=== PATIENT | male | born 1975 | race Caucasian/White ===

== ENCOUNTER 2016-12-12 06:55 | Inpatient (IN) | payer BC ==
--- NOTE | 2016-11-21 15:50 | HP ---
CC: Amish Cardona MD, at [facility]; Jesus Alan MD PREOPERATIVE HISTORY AND PHYSICAL: DATE OF ADMISSION: 12/12/16 This patient is scheduled for AA admission by Dr. Cardona on 12/12/16. ATTENDING SURGEON: Amish Cardona MD (dictated by Nancy Mcmanus NP). CHIEF COMPLAINT: Morbid obesity. HISTORY OF PRESENT ILLNESS: The patient is a 41-year-old morbidly obese male with insulin-dependent diabetes with poor glycemic control, hypertension, and dyslipidemia. He is followed for primary ca re by Dr. Alan and was referred to Dr. Cardona for consideration of bariatric surgery as a long-t erm treatment for his diabetes. He stands at 73 inches and weighs 322 pounds for a body mass index of 42.5. He has lost 18 pounds during the 6-month period of medically supervised weight loss. He has completed all of the necessary preoperative diagnostic evaluations and testing and has been deem ed an appropriate candidate by Dr. Cardona to proceed with laparoscopic Janneth-en-Y gastric bypass. Donna Cardona has described the nature of the surgical procedure, the expected results of surgery, the relevant risks, benefits, and alternatives and today, I reviewed the typical postoperative care and recovery. The patient understands the need for compliance with the postop stages of the diet, exerc ise, vitamin and mineral supplementation, as well as followup visits with Dr. Cardona. The patient has had a chance to ask questions and stated that he understands the information and is satisfied wi th the answers given to his questions. He will sign surgical consent on the day of surgery. PAST MEDICAL HISTORY: Significant for clinically severe obesity, insulin-dependent diabetes with po or glycemic control with hemoglobin A1c's greater than 8 for the past 2 years and as high as 10 in 2 014, dyslipidemia, hypertension, and back pain. PAST SURGICAL HISTORY: Back surgery in 1997 for ruptured disk at [facility]. MEDICATIONS: 1. Pioglitazone 45 mg p.o. daily in the morning. 2. Ramipril 5 mg p.o. daily. 3. Atorvastatin 40 mg p.o. daily. 4. Lantus insulin 80 units subcutaneously every morning. 5. Aspirin 81 mg p.o. daily and the patient was advised to hold the aspirin 1 week preoperatively. He also knows that he may need to discuss with Dr. Alan adjusting his insulin and pioglitazone w martinezdonn he is on the preoperative diet if he experiences any symptoms of hypoglycemia. ALLERGIES: No known drug allergies. FAMILY HISTORY: Mother alive at age 66, described as slightly overweight with a history of stomach cancer and smoking. Father alive at age 71, described as overweight with a history of open heart carlisle rgery, type 2 diabetes, and deep vein thrombosis of the lower extremity. The patient has one sister age 41, generally healthy, described as normal weight. The patient's paternal grandfather had diab etes. No known anesthesia complications or bleeding tendencies in the family. SOCIAL HISTORY: He is . He is employed as a galindo. He quit smoking at age 25. He drin ks 2 to 3 alcoholic beverages per week on average and denies the use of other substances. REVIEW OF SYSTEMS: He denies any recent constitutional symptoms. He denies any cardiac conditions or complaints. He is treated for hypertension. He denies any history of deep vein thrombosis or pu lmonary embolism. He denies any respiratory conditions or complaints. He underwent upper endoscopy preoperatively which revealed minimal gastritis consistent with aspirin usage, CLOtest was negative . Upper GI series revealed a small sliding hiatal hernia. Gallbladder ultrasound was negative for g allstones, but did reveal a fatty liver. He denies any acid reflux. He denies any kidney conditions or complaints. He denies any dysuria. He denies any previous anesthesia complications. He denies any bleeding tendencies and has never received a blood transfusion. He has been diabetic for appro ximately 6 years and has poor glycemic control. At this time, fasting fingerstick in the morning ru ns between 120 and 140. He denies any neurologic conditions or complaints. He reports physical briones itations related to his obesity as being unable to fit into certain places and having difficulty juju ding over. PHYSICAL EXAMINATION GENERAL SURVEY: The patient is a 41-year-old morbidly obese male in no acute distress. VITAL SIGNS: Height 73 inches, weight 322 pounds, body mass index 42.5. Blood pressure 144/86, pul se 62 and regular, respiratory rate 18, temperature 98 tympanic. HEENT: Benign. NECK: Supple. No cervical lymphadenopathy. No JVD. No carotid bruits. BACK: No CVA tenderness. Well-healed surgical scar. LUNGS: Breath sounds bilaterally clear and equal. HEART: Regular rate and rhythm. No murmurs or rubs appreciated. ABDOMEN: Obese, soft, nontender throughout. No obvious masses, organomegaly, or evidence of umbili jocelyn hernia. EXTREMITIES: Warm without edema or skin ulceration. GENITALIA AND RECTAL: Exams deferred. NEUROLOGIC: Alert and oriented x3. Steady gait. SKIN: Warm, dry, and intact. IMPRESSION: Morbid obesity. PLAN: AA admission to Dr. Cardona' service on 12/12/16, for laparoscopic Janneth-en-Y gastric bypass. DEANNA MCMANUS, DEBURRING AND TOOLING MACHINE OPERATOR [id number]/CPS #: [id number]
[~2016-12-12 06:55] MED LIST: Buffered Lidocaine 1% SYRIN* 3 ML/SYR SYRINGE INTRADERM ONE; Clindamycin 900 MG IVPREMIX(* 900 MG/50 ML SDV IV ONE; Heparin VIAL(*) 5000 UNITS/ML VIAL (FIVE THOUSAND) ONE; ceFAZolin 1 GM in Dextrose (*) 1 GM/50 ML BAG IVPB ONE; ceFOXitin 2 GM IVPREMIX* 2 GM/50 ML BAG ONE
[2016-12-12] MEDS ORDERED: Bupivacaine 0.5% W/EPI SDV* 30 ML VIAL ONE (08:20)
[2016-12-12] MEDS ORDERED: Methylene Blue 1%* 10 ML VIAL ONE (08:20)
[2016-12-12] MEDS ORDERED: Midazolam* 1 MG/ML 2 ML VIAL (2 MG) ONE (08:29)
[2016-12-12] MEDS ORDERED: fentaNYL* 50 MCG/ML 5 ML VIAL (250 MCG VIAL) ONE (08:29)
[2016-12-12] MEDS ORDERED: Succinylcholine* 20 MG/ML 10 ML VIAL ONE ×2 (08:30→09:16)
[2016-12-12] MEDS ORDERED: Lidocaine 2% PF* 5 ML VIAL ONE (08:30)
[2016-12-12] MEDS ORDERED: Propofol* 10 MG/ML 20 ML BTL IV PUSH ONE (08:30)
[2016-12-12] MEDS ORDERED: Ondansetron INJ* 2 MG/ML VIAL ONE ×2 (08:30→11:14)
[2016-12-12] MEDS ORDERED: Cisatracurium* 2 MG/ML MDV 5 ML ONE (08:31)
[2016-12-12] MEDS ORDERED: fentaNYL* 50 MCG/ML 2 ML VIAL (100 MCG VIAL) IV PRN (10:23)
[2016-12-12] MEDS ORDERED: Metoclopramide IV* 5 MG/ML 2 ML VIAL IV PRN (10:23)
[2016-12-12] MEDS ORDERED: fentaNYL* 50 MCG/ML 2 ML VIAL (100 MCG VIAL) ONE (10:43)
[2016-12-12] MEDS ORDERED: Acetaminophen ADULT LIQ* 650 MG/20.3 ML UDC PO PRN (10:54)
[2016-12-12] MEDS ORDERED: Ondansetron INJ* 2 MG/ML VIAL IV PRN (10:54)
[2016-12-12] MEDS ORDERED: HYDROmorphone* 1 MG/ML 1 ML SYR IV PRN (10:54)
[2016-12-12] MEDS ORDERED: diPHENhydraMINE IV* 50 MG/ML 1 ml VIAL (BENADRYL) SLOW PUSH PRN (10:54)
--- NOTE | 2016-12-12 10:54 | SURGPN ---
Brief Operative Note - Surgery Procedures: PREOP/POSTOP DX: MORBID OBESITY PROC: LRYGB SURG: MECENAS ASSIST: SAROJ SINGLETARY: ROBERT GRAHAM EBL: MIN IVF: LR SPEC: NONE DRAIN: NONE COMPL: NONE COND: STABLE TO RR
[2016-12-12] MEDS ORDERED: Metoclopramide IV* 5 MG/ML 2 ML VIAL ONE (11:14)
[2016-12-12] MEDS ORDERED: HYDROmorphone* 1 MG/ML 1 ML SYR ONE ×2 (11:24→13:18)
[2016-12-12] MEDS: HYDROmorphone* 1 MG/ML 1 ML SYR IV PRN ×7 (11:25→21:22)
[2016-12-12] MEDS ORDERED: Scopolamine 1.5 mg* PATCH ONE (11:29)
[2016-12-12] MEDS ORDERED: Ketorolac INJ* 30 MG/ML 1 ML VIAL ONE (11:50)
[2016-12-12] MEDS: Ketorolac INJ* 30 MG/ML 1 ML VIAL IV PRN ×2 (11:52→18:01)
[2016-12-12] MEDS ORDERED: HYDROmorphone* 1 MG/ML 1 ML SYR IV ONE (13:19)
[2016-12-12] MEDS: Famotidine IV* 10 MG/ML 2 ML (20 mg) IV SCH ×2 (13:23→23:15)
[2016-12-12] MEDS: Insulin REGULAR(*) 1 UNITS UNIT SUBCUT SCH ×3 (13:32→23:38)
[2016-12-12] MEDS: Heparin VIAL(*) 5000 UNITS/ML VIAL (FIVE THOUSAND) SUBCUT SCH ×2 (14:27→23:15)
[2016-12-13] MEDS: HYDROmorphone* 1 MG/ML 1 ML SYR IV PRN ×2 (02:24→13:21)
[2016-12-13] MEDS: Ketorolac INJ* 30 MG/ML 1 ML VIAL IV PRN ×4 (02:24→22:45)
--- NOTE | 2016-12-13 04:44 | OP ---
DATE OF OPERATION: 12/12/16 - ROOM #353 DATE OF : 75 SURGEON: Amish Cardona MD MANAGER OF REVENUE: Dangelo Dougherty MD ANESTHESIOLOGIST: Kristi Pitt MD ANESTHESIA: General endotracheal. PRE-OP DIAGNOSIS: Morbid obesity. POST-OP DIAGNOSIS: Morbid obesity. OPERATIVE PROCEDURE: Laparoscopic Janneth-en-Y gastric bypass. ESTIMATED BLOOD LOSS: Minimal. IV FLUIDS: Crystalloid. SPECIMEN: None. DRAINS: None. COMPLICATIONS: None. COUNTS: The instrument, needle, and sponge counts were correct. DESCRIPTION OF PROCEDURE: The patient was brought to the operating room and placed on the table supine. Sequential compression devices were placed on both lower extremities. General anesthesia was administered. Cardenas catheter was placed. He was positioned and padded appropriately. Warming blanket was applied. His abdomen was prepped and draped in the usual sterile fashion. He received appropriate antibiotics and time-out was performed. Local anesthetic was infiltrated into the skin and soft tissue prior to making each incision. Entry into the abdomen was through a left upper quadrant incision accommodating a 12-mm optical trocar. After accessing the peritoneal cavity, carbon dioxide was insufflated to a pressure of 15 mmHg. Under direct visualization, 12-mm bladeless trocars were placed supraumbilically and in the right upper quadrant. 5 mm bladeless trocars were placed in the right upper quadrant medially and left upper quadrant laterally. A Jose liver retractor was placed percutaneously in the subxiphoid position and used to elevate the left lobe of the liver. The liver was normal in appearance. The stomach was decompressed with an oral gastric tube, which was then removed. The epigastric fat pad was mobilized away from the diaphragm and left faby of the diaphragm was exposed. Next, perigastric dissection was undertaken on the lesser curvature and lesser sac was entered. A series of firings with the EndoGIA stapler with shen cartridges were used to create the gastric pouch, which approximated 20 to 30 mL volume. The olivia lines were noted to be intact and hemostatic. Next, the omentum was retracted superiorly and divided along its midline with LigaSure. The ligament of Treitz was identified and jejunum was measured out approximately 40 to 50 cm. The jejunum was tacked to the left lateral staple line on the gastric pouch and then a gastrojejunostomy was created with the EndoGIA stapler with a 30-mm shen cartridge. The common enterotomy was then closed with 3-0 Maxon over a 36-Dominican gastric lavage tube. The "omega loop" of the small bowel was divided with EndoGIA stapler with shen cartridge and then the gastrojejunal anastomosis was tested with methylene blue dye solution instilled through the gastric lavage tube and no leak was identified. Subsequently, the Janneth limb was measured out 75 cm and a functional end-to-side jejunojejunostomy was created with a 60-mm Endo PRESLEY stapler and common enterotomy was again closed with 3-0 Maxon running. The mesenteric defect was closed with 3-0 silk in interrupted and running fashion. The inspection revealed hemostasis to be excellent. Jose liver retractor and ports removed and carbon dioxide was released. Skin incisions were closed with olivia and dressings applied. The patient tolerated the procedure well. He was extubated and transferred to the recovery room in stable condition. CC: Jesus Alan MD* [id number]/STEPHANIE #: [id number] SEKOU
[2016-12-13] MEDS: Insulin REGULAR(*) 1 UNITS UNIT SUBCUT SCH ×3 (06:08→18:13)
[2016-12-13] MEDS: Heparin VIAL(*) 5000 UNITS/ML VIAL (FIVE THOUSAND) SUBCUT SCH ×3 (06:08→22:41)
--- NOTE | 2016-12-13 08:08 | PN ---
Progress Note - Progress Note SOAP: Subjective: Feels good. Pain controlled. No N/V. Ambulating. Objective: Vital Signs Temp 98.0 F 12/13/16 07:32 Pulse 65 12/13/16 07:32 Resp 16 12/13/16 07:32 BP 136/76 12/13/16 07:32 Pulse Ox 99 12/13/16 07:32 Intake & Output 12/12/16 12/13/16 12/13/16 18:59 06:59 18:59 Intake Total 3150 1801 Output Total 1100 1250 Balance 2050 551 Weight 306 lb 9.6 oz Intake: IV Fluids 3150 1801 3GM CEFAZOLIN 100 CLINDAMYCIN 900MG 50 LR 3000 1801 Oral 0 0 Output: Payton 1100 1250 NAD abd: dressings c/d/i; ND; soft; min tender Laboratory Results - last 24 hr 12/12/16 12/12/16 12/12/16 11:04 13:23 17:48 POC Glucose (mg/dL) 167 H 216 H 140 H 12/12/16 12/13/16 23:13 06:07 POC Glucose (mg/dL) 88 93 Assessment: POD#1 s/p LRYGB. Doing well. Plan: D/C payton. Adv diet. Amb. PO meds. Home am.
[2016-12-13] MEDS: Famotidine IV* 10 MG/ML 2 ML (20 mg) IV SCH ×2 (11:50→22:41)
[2016-12-13] MEDS: D5W 1/2 NS KCl 20 Meq 1000 ML* 1,000 ML IV SCH (15:43)
[2016-12-13] MEDS: HYDROcodone/ACET. 7.5/325 LIQ* 15 ML UDC PO PRN (18:02)
[2016-12-14] MEDS: D5W 1/2 NS KCl 20 Meq 1000 ML* 1,000 ML IV SCH ×2 (00:26→08:18)
[2016-12-14] MEDS: Insulin REGULAR(*) 1 UNITS UNIT SUBCUT SCH ×3 (00:31→12:15)
[2016-12-14] MEDS: Heparin VIAL(*) 5000 UNITS/ML VIAL (FIVE THOUSAND) SUBCUT SCH (06:14)
[2016-12-14] MEDS: HYDROcodone/ACET. 7.5/325 LIQ* 15 ML UDC PO PRN ×2 (06:16→12:19)
--- NOTE | 2016-12-14 10:59 | SURGPN ---
Subjective - Introduction -: Reports doing very well, mild incisional discomfort. No N/V, fever or chills. Tolerating stage I bariatric diet. Ambulatory and ready to go home. - Medications -: Active Medications Generic Name Dose Route Start Last Admin Trade Name Freq PRN Reason Stop Dose Admin Acetaminophen 650 mg 12/12/16 10:54 Tylenol Adult Liq* PO Q6H PRN Temp > 101 F Or Mild Pain Hydrocodone Bitart/Acetaminophen 15 ml 12/12/16 10:54 12/14/16 06:16 Nortab 7.5/325 Liq* PO 15 ml Q6H PRN Administration PAIN Diphenhydramine HCl 25 mg 12/12/16 10:54 Benadryl Iv* SLOW PUSH Q6H PRN ITCHING Famotidine 20 mg 12/12/16 11:00 12/13/16 22:41 Pepcid Iv* IV 20 mg Q12H RODNEY Administration Heparin Sodium (Porcine) 5,000 units 12/12/16 14:00 12/14/16 06:14 Heparin Vial(*) SUBCUT 5,000 units Q8HR RODNEY Administration Hydromorphone HCl 1 mg 12/12/16 13:20 12/13/16 13:21 Dilaudid Iv* IV 1 mg Q2H PRN Administration PAIN Potassium Chloride/Dextrose 1,000 mls @ 125 mls/hr 12/13/16 10:55 12/14/16 08 :18 D5w 1/2 Ns Kcl 20 Meq 1000 Ml* IV 125 mls/hr PER RATE RODNEY Administration Insulin Human Regular 0 - 12 units 12/12/16 12:00 12/14/16 06:18 Insulin Regular(*) SUBCUT Not Given Q6HR [facility] Protocol Ketorolac Tromethamine 30 mg 12/12/16 10:54 12/13/16 22:45 Toradol Inj* IV 12/14/16 10:55 30 mg Q6H PRN Administration PAIN Ondansetron HCl 4 mg 12/12/16 10:54 12/12/16 11:16 Zofran Inj* IV 4 mg Q6H PRN Administration NAUSEA/VOMITING Objective - Objective -: Awake and alert, comfortable on bed, in NAD. - Intake and Output -: Intake & Output 12/12/16 12/13/16 12/14/16 12/15/16 06:59 06:59 06:59 06:59 Intake Total 4951 4235 Output Total 2350 2250 1000 Balance 2601 1984 -999 Weight 306 lb 9.6 oz Intake: IV Fluids 4951 3590 3GM CEFAZOLIN 100 CLINDAMYCIN 900MG 50 D5W 1/2 NS 20 meq KCL 1706 LR 4801 1884 Oral 0 645 Output: Urine 1950 1000 Cardenas 2350 300 Other: # Bowel Movements 0 ADLs: Meal Record Start: 12/12/16 13: 06 Freq: Status: Active Created 12/12/16 13:06 [id number] (Rec: 12/12/16 13:06 [id number] SSU-C11) Document 12/12/16 14:39 [id number] (Rec: 12/12/16 14:39 [id number] SSU-C04) Document 12/13/16 10:03 [id number] (Rec: 12/13/16 10:03 [id number] SSU-C19) Document 12/13/16 14:03 [id number] (Rec: 12/13/16 14:05 [id number] SSU-C19) Document 12/13/16 18:28 [id number] (Rec: 12/13/16 18:29 [id number] SSU-C04) Document 12/14/16 10:51 [id number] (Rec: 12/14/16 10:53 [id number] SSU-C19) Intake and Output Start: 12/12/16 13: 06 Freq: DAILY@0600,1400,2200 Status: Active Created 12/12/16 13:06 [id number] (Rec: 12/12/16 13:06 [id number] SSU-C11) Document 12/12/16 14:39 [id number] (Rec: 12/12/16 14:39 [id number] SSU-C04) Document 12/12/16 23:06 [id number] (Rec: 12/12/16 23:07 [id number] SSU-C03) Document 12/13/16 06:00 [id number] (Rec: 12/13/16 06:27 [id number] SSU-C02) Document 12/13/16 14:03 [id number] (Rec: 12/13/16 14:05 [id number] SSU-C19) Document 12/13/16 14:31 [id number] (Rec: 12/13/16 14:31 [id number] SSU-C19) Document 12/13/16 15:15 [id number] (Rec: 12/13/16 17:05 [id number] SSU-C06) Document 12/13/16 22:00 [id number] (Rec: 12/13/16 22:43 [id number] SSU-C04) Document 12/14/16 06:00 [id number] (Rec: 12/14/16 06:13 [id number] ICU-M18) Document 12/14/16 06:20 [id number] (Rec: 12/14/16 06:21 [id number] SSU-C03) Document 12/14/16 10:11 [id number] (Rec: 12/14/16 10:12 [id number] SSU-C08) Surgical Physical Exam - Comments -: VSS, afebrile. Abdomen soft, non-tender and non-distended. Normal BS in all quadrants. No guarding or rigidity. Incisions C/D/I. Lungs CTA bilat. Ext. no edema. Assessment and Plan - Assessment -: A 41 y/o male, s/p laparoscopic RYGB, POD#2, doing well. - Plan Surgical Plan of Care: Discontinue IV, Discharge Additional Comments: He appears to be doing very well. Will plan on d/c to home later this am, and to F/U with Dr. Cardona next week.
[2016-12-14] MEDS: Famotidine IV* 10 MG/ML 2 ML (20 mg) IV SCH (11:26)
[2016-12-14 12:19] VITALS: BP 133/76
--- NOTE | 2016-12-14 16:42 | PN ---
Progress Note - Progress Note SOAP: Subjective: seen this am. late entry. had no problems overnight and feeling well. passing flatus. good pain control with po meds. Objective: AVSS, voiding abd: incis c/d/i no erythema, soft and NT Assessment: POD#2 s/p LRYGB. Doing well. Plan: D/c home. RTO 1 week for olivia.
--- NOTE | 2016-12-14 23:13 | DS ---
DISCHARGE SUMMARY: DATE OF ADMISSION: 12/12/16 DATE OF DISCHARGE: 12/14/16 ADMISSION DIAGNOSIS: Morbid obesity. DISCHARGE DIAGNOSIS: Morbid obesity. ADMITTING PHYSICIAN: Dr. Amish Cardona. CONSULTATIONS: None. PROCEDURE: Laparoscopic Janneth-en-Y gastric bypass on 12/12/16. HISTORY OF PRESENT ILLNESS: Mr. Raza is a pleasant 41-year-old gentleman who was seen in the office to discuss bariatric surgery. The patient has long- standing history of insulin dependent diabetes with poor glycemic control, hypertension, and dyslipidemia. He has tried different option to lose weight, but unfortunately he failed to maintain his weight loss. He was referred by his primary care physician, Dr. Alan, to discuss bariatric surgery with Dr. Cardona. After he completed all the necessary preoperative diagnostic evaluation, he was found to be a good candidate to undergo a Janneth-en- Y gastric bypass to be performed on a later date. HOSPITAL COURSE: The patient was admitted on the same in anticipation for surgery. He underwent a laparoscopic Janneth-en-Y gastric bypass on 12/12/16 that was essentially unremarkable. After recovery, the patient was sent to the surgical floor for observation. He did extremely well with only mild incisional discomfort. He was ambulatory out of bed that night and he continued to improve every day. He started on the next morning on stage 1 bariatric diet that he tolerated well. His glycemic control was checked every 6 hours and he was doing well on that aspect. He continued to improve on a daily basis. On discharge morning, he was ready to go home. His Cardenas catheter was discontinued on the postoperative day #1 and he was voiding with no problem. He will be discharged to home later this morning and all the discharge instructions were given to him both verbally and in written format. He will follow up with Dr. Cardona as an outpatient next week. DISCHARGE MEDICATIONS: Include: 1. Aspirin 81 mg p.o. daily. 2. Lipitor 40 mg p.o. q.a.m. 3. Insulin Lantus per sliding scale subcutaneously. 4. Multivitamin 1 tab daily. 5. Actos 45 mg p.o. daily. 6. Altace 5 mg p.o. daily. 7. Lortab elixir if needed for pain. PROBLEM LIST: Morbid obesity, status post laparoscopic Janneth-en-Y gastric bypass on 12/12/16. LEXUS VARGAS CC: Dr. Jesus Alan * [id number]/[facility] #: [id number] [facility] CENTERDonna
== END 2016-12-14 14:50 | disposition home or self-care (01) | DRG 403 ==
LOC: AA 06:55 → SSU 12:54
PROVIDERS: ADMIT Surgery; ATTEND Surgery
PROC: 0D164ZA Bypass Stomach to Jejunum, Percutaneous Endoscopic Approach (ICD-10-PCS; principal; 2016-12-12 08:00)
DX: E66.01 Morbid (severe) obesity due to excess calories (principal); E11.65 Type 2 diabetes mellitus with hyperglycemia; K76.0 Fatty (change of) liver, not elsewhere classified; I10 Essential (primary) hypertension; E78.5 Hyperlipidemia, unspecified; K44.9 Diaphragmatic hernia without obstruction or gangrene; K21.9 Gastro-esophageal reflux disease without esophagitis; Z79.82 Long term (current) use of aspirin; Z68.41 Body mass index [BMI] 40.0-44.9, adult; Z82.49 Family history of ischemic heart disease and other diseases of the circulatory system; Z83.3 Family history of diabetes mellitus; Z80.0 Family history of malignant neoplasm of digestive organs; Z81.2 Family history of tobacco abuse and dependence; Z72.89 Other problems related to lifestyle; Z87.891 Personal history of nicotine dependence; Z79.4 Long term (current) use of insulin
CPT/HCPCS: 94640; 94760; A9270-GY; C1776; J0330; J0690; J0694; J1170; J1644; J1885; J2250; J2405; J2704; J3010